=== PATIENT | female | born 1965 | race Caucasian/White ===

== ENCOUNTER 2017-07-20 14:20 | Emergency (ER) | payer OTHER ==
[~2017-07-20] VITALS: Ht 162.6 cm; Wt 52.2 kg
[~2017-07-20 14:20] MED LIST: CALC667C6 PO; CRESTOR20 MG PO; ERGO500027 PO; OMEG1CAP2 PO; RALO60TA PO
[2017-07-20 14:33] VITALS: BP 148/80
--- NOTE | 2017-07-20 15:11 | PHYS DOC ---
Past Medical History Past Medical History: High Cholesterol, Other Additional Past Medical Histor: SPINA BIFIDA Past Surgical History: Other Additional Past Surgical Histo: TUMOR REMOVED FROM SPINE Alcohol Use: Rarely Drug Use: None Adult General Chief Complaint Chief Complaint: LOWER EXT PAIN HPI HPI Patient is a 52 year old female presents to the emergency department stating that she has had bruising to bilateral feet for the last 2 weeks. Patient states she has also had a sore on bilateral feet for the last 2 weeks. Patient states she has no feeling in her feet which is normal for the last 20 + years. Patient is unsure if she had any injury. Review of Systems Review of Systems Constitutional: Denies fever or chills [] Eyes: Denies change in visual acuity, redness, or eye pain [] HENT: Denies nasal congestion or sore throat [] Respiratory: Denies cough or shortness of breath [] Cardiovascular: No additional information not addressed in HPI [] GI: Denies abdominal pain, nausea, vomiting, bloody stools or diarrhea [] : Denies dysuria or hematuria [] Musculoskeletal: Denies back pain. Bilateral feet with bruising noted at the toes Integument: Denies rash or skin lesions [] Neurologic: Denies headache, focal weakness or sensory changes [] Endocrine: Denies polyuria or polydipsia [] Allergies Allergies Allergies Coded Allergies Type Severity Reaction Last Updated Verified No Known Drug Allergies 08/26/15 No Physical Exam Physical Exam Constitutional: Well developed, well nourished, no acute distress, non-toxic appearance. [] HENT: Normocephalic, atraumatic, bilateral external ears normal, oropharynx moist, no oral exudates, nose normal. [] Eyes: PERRLA, EOMI, conjunctiva normal, no discharge. [] Neck: Normal range of motion, no tenderness, supple, no stridor. [] Cardiovascular:Heart rate regular rhythm, no murmur [] Lungs & Thorax: Bilateral breath sounds clear to auscultation [] Skin: Warm, dry, no erythema, no rash. Patient with open wounds noted at the 1st distal metatarsal area. Back: No tenderness Extremities: Bilateral feet with bruising noted no tenderness, no cyanosis, no clubbing, ROM intact, no edema. [] Neurologic: Alert and oriented X 3, normal motor function, normal sensory function, no focal deficits noted. [] Psychologic: Affect normal, judgement normal, mood normal. [] Current Patient Data Vital Signs Vital Signs Date Time Temp Pulse Resp B/P (MAP) Pulse Ox O2 Delivery O2 Flow Rate FiO2 07/20/17 14:33 98.7 89 15 98 Room Air 98.7 EKG EKG [] Radiology/Procedures Radiology/Procedures [facility] [address] [place] [address] IMAGING REPORT Signed PATIENT: KYAW RIVERA ACCOUNT: [id number] : 1965 LOCATION: ER AGE: 52 SEX: F EXAM STATUS: REG ER ORD. PHYSICIAN: ZACKERY HARDY APRN REASON: bilateral foot bruising PROCEDURE: FOOT BILAT 3V Bilateral feet, 6 views, 07/20/2017: History: Foot pain There is mild deformity of the left second metatarsal shaft compatible with an old healed fracture. There is deformity of the distal aspect of the proximal phalanx of the left great toe compatible with old trauma with secondary degenerative change at the AP joint. There are scattered degenerative changes including the left third MTP joint, the left second MTP joint and to a lesser degree scattered interphalangeal joints bilaterally. No fracture or dislocation is identified. There is mild subcutaneous edema bilaterally. IMPRESSION: 1. Mild scattered degenerative changes. 2. No acute bony abnormality is detected. DICTATED and SIGNED BY: NITHIN PINEDA MD DATE: 07/20/17 1526 CC: ZACKERY HARDY APRN; JOYCE SPICER MD; NON,STAFF ~ [] Course & Med Decision Making Course & Med Decision Making Pertinent Labs and Imaging studies reviewed. (See chart for details) X-rays were negative for any abnormalities per radiology. Patient has had the 2 open wounds on bilateral feet that appear to be impacted cystic to appear to be some type of ulcers. He do have drainage coming from the site. Patient will be placed on antibiotics Bactrim, she'll be provided with a discharge instructions to follow up at the wound care center. She'll be discharged home in stable condition signs and symptoms to return back to emergency department has been provided. If patient is unable to into the wound care center here at the [facility] recommended wound care center. Patient agrees with discharge instructions, treatment regimens and follow-up recommendations. Recommended follow-up visit with her primary care physician in the next 3-5 days. [] Dragon Disclaimer Dragon Disclaimer This electronic medical record was generated, in whole or in part, using a voice recognition dictation system. Departure Departure Impression: Primary Impression: Cellulitis of both feet Disposition: HOME, SELF-CARE Condition: STABLE Referrals: JOYCE SPICER MD (PCP) Patient Instructions: Cellulitis, [id number] Additional Instructions: Your being treated for an infection in both of your feet today. Antibiotics as prescribed. Tylenol or ibuprofen for pain and discomfort. Follow-up with wound care clinic either here at [facility] at [facility]. Follow-up to primary care physician in the next 3-5 days. Return back to emergency department for signs and symptoms of become worse. Scripts Sulfamethoxazole/Trimethoprim (BACTRIM DS TABLET) 1 Each Tablet 1 TAB PO BID, #20 TAB Prov: ZACKERY HARDY APRN 07/20/17 ZACKERY HARDY APRN Jul 20, 2017 15:11
--- NOTE | 2017-07-20 15:32 | RAD ---
Bilateral feet, 6 views, 07/20/2017: History: Foot pain There is mild deformity of the left second metatarsal shaft compatible with an old healed fracture. There is deformity of the distal aspect of the proximal phalanx of the left great toe compatible with old trauma with secondary degenerative change at the AP joint. There are scattered degenerative changes including the left third MTP joint, the left second MTP joint and to a lesser degree scattered interphalangeal joints bilaterally. No fracture or dislocation is identified. There is mild subcutaneous edema bilaterally. IMPRESSION: 1. Mild scattered degenerative changes. 2. No acute bony abnormality is detected.
[2017-07-20] MEDS ORDERED: SULF1TAB24 PO (15:49)
== END 2017-07-20 16:00 | disposition home or self-care (01) ==
LOC: ER 14:20
DX: L03.116 Cellulitis of left lower limb (principal); L03.115 Cellulitis of right lower limb; E78.00 Pure hypercholesterolemia, unspecified
CPT/HCPCS: 73630; 99284

== ENCOUNTER 2019-06-29 16:21 | Emergency (ER) | payer MEDICAID, OTHER ==
[~2019-06-29] VITALS: Ht 162.6 cm; Wt 61.2 kg
[~2019-06-29 16:21] MED LIST changes: +SULF1TAB24 PO
[2019-06-29 17:05] VITALS: BP 157/90
--- NOTE | 2019-06-29 17:17 | PHYS DOC ---
Past Medical History Past Medical History: High Cholesterol, Other Additional Past Medical Histor: SPINA BIFIDA (ZACKERY MACK DOOR CUTTER) Past Surgical History: Other Additional Past Surgical Histo: TUMOR REMOVED FROM SPINE (ZACKERY MACK APRN) Alcohol Use: Rarely Drug Use: None (ZACKERY MACK APRN) Adult General Chief Complaint Chief Complaint: [facility] HPI Patient is a 54 year old female who presents with right shoulder pain that times with movement she will have a sharp pain radiates down the arm into the fourth and fifth fingers. Patient states she had felt the same thing previously in the other shoulder. Patient does use this arm to hold her cane as she walks. Patient currently rates her pain a 5 out of 10 and states she has not taken any pain medicine. Patient is on meloxicam for arthritis. (ZACKERY MACK APRN) Review of Systems Review of Systems Constitutional: Denies fever or chills [] Eyes: Denies change in visual acuity, redness, or eye pain [] HENT: Denies nasal congestion or sore throat [] Respiratory: Denies cough or shortness of breath [] Cardiovascular: No additional information not addressed in HPI [] GI: Denies abdominal pain, nausea, vomiting, bloody stools or diarrhea [] : Denies dysuria or hematuria [] Musculoskeletal: Denies back pain. Right shoulder joint pain [] Integument: Denies rash or skin lesions [] Neurologic: Denies headache, focal weakness or sensory changes [] Endocrine: Denies polyuria or polydipsia [] All other systems were reviewed and found to be within normal limits, except as documented in this note. (ZACKERY MACK APRN) Allergies Allergies Allergies Coded Allergies Type Severity Reaction Last Updated Verified No Known Drug Allergies 08/26/15 No (JASMYN HUNTER DO) Physical Exam Physical Exam Constitutional: Well developed, well nourished, no acute distress, non-toxic appearance. [] Neck: Normal range of motion, no tenderness, supple, no stridor. [] Skin: Warm, dry, no erythema, no rash. [] Extremities: No tenderness, no cyanosis, no clubbing, ROM intact, no edema. [] Neurologic: Alert and oriented X 3, normal motor function, normal sensory function, no focal deficits noted. [] Psychologic: Affect normal, judgement normal, mood normal. Normal Physical Exam[] (ZACKERY MACK APRN) Current Patient Data Vital Signs Vital Signs Date Time Temp Pulse Resp B/P (MAP) Pulse Ox O2 Delivery O2 Flow Rate FiO2 06/29/19 17:05 98.2 82 18 157/90 (112) 98 Room Air 98.2 (HUNTER,JASMYN Benavides DO) EKG EKG [] (ZACKERY MACK APRN) Radiology/Procedures Radiology/Procedures [] (ZACKERY MACK APRN) Course & Med Decision Making Course & Med Decision Making Patient is a 54 year old female who presents with right shoulder pain that times with movement she will have a sharp pain radiates down the arm into the fourth and fifth fingers. Patient states she had felt the same thing previously in the other shoulder. Patient does use this arm to hold her cane as she walks. Patient currently rates her pain a 5 out of 10 and states she has not taken any pain medicine. Patient is on meloxicam for arthritis. Bilateral radial pulses are equal palpable and strong. There is no extremity edema. Skin is pink warm and dry. Cap refill less than 3. Patient denies any tenderness to the extremity with palpation. Range of motion of the shoulder is not intact due to pain but she can lift the shoulder in all directions to about shoulder height. Patient denies any numbness, tingling, skin color changes, temperature changes in the extremity. She states she does have a doctor's appointment on the 13th of next month. Patient denies any injury to the extremity. Patient denies numbness and tingling, chest pain, shortness of air, dizziness, syncope, visual changes, headache. She ambulates with a steady gait and does use a cane. Speaks in full clear sentences. Denies any weaknesses. Shoulder xray read by Dr Campa. No obvious acute findings are seen. Patient to follow up with her doctor as planned. I will give her pain medication to help her with pain. Patient is warned not to drive on this pain medication and that it can make her sleepy or dizzy. (ZACKERY MACK APRN) Dragon Disclaimer Dragon Disclaimer This electronic medical record was generated, in whole or in part, using a voice recognition dictation system. (ZACKERY MACK APRN) Departure Departure Impression: Primary Impression: Shoulder pain Disposition: HOME, SELF-CARE Condition: STABLE Referrals: JAXON MARTINS APRN (PCP) Patient Instructions: Arthritis, Nonspecific, Shoulder Pain Additional Instructions: Follow-up with primary care doctor as planned. Take pain medication as needed. Scripts Hydrocodone Bit/Acetaminophen (HYDROCODONE-APAP 5-325 ) 1 Tab Tablet 1 TAB PO PRN Q6HRS PRN for PAIN, #10 TAB 0 Refills Prov: ZACKERY MACK APRN 06/29/19 Attending Signature Attending Signature I have reviewed the PA/SOCIAL SECURITY BENEFITS INTERVIEWER's note and plan of care. I was available for consultation as needed during the patient's visit in the emergency department. I agree with the clinical impression, plan, and disposition. (JASMYN HUNTER DO) Problem Qualifiers Primary Impression: Shoulder pain Chronicity: acute Laterality: right Qualified Codes: M25.511 - Pain in right shoulder ZACKERY MACK APRN Jun 29, 2019 17:17 JASMYN HUNTER DO Jun 30, 2019 03:59
[2019-06-29] MEDS ORDERED: HYDR-2761 PO (18:19)
--- NOTE | 2019-06-29 20:11 | RAD ---
Exam: Right shoulder 3 views INDICATION: Pain TECHNIQUE: Frontal view of the right shoulder with internal and external rotation with transscapular Y view. Comparisons: None FINDINGS: Bone mineralization is normal. No acute or healed fractures. Soft tissues are unremarkable. Mild osteoarthritic change at the acromioclavicular joint. Otherwise joint spaces are well-maintained. IMPRESSION: No acute osseous abnormality. Electronically signed by: Consuelo Krishna MD (06/29/2019 8:08 PM) [facility]
== END 2019-06-29 18:42 | disposition home or self-care (01) ==
LOC: ER 16:21
DX: M25.511 Pain in right shoulder (principal); E78.00 Pure hypercholesterolemia, unspecified
CPT/HCPCS: 73030; 99284

== ENCOUNTER 2020-11-24 11:55 | Emergency (ER) | payer MEDICAID ==
[~2020-11-24] VITALS: Ht 162.6 cm; Wt 63.6 kg
[~2020-11-24 11:55] MED LIST changes: +HYDR-2761 PO
[2020-11-24] MEDS ORDERED: IV NORMAL SALINE 1000ML BAG 1,000 ML IV ONE ×2 (13:45→18:15)
--- NOTE | 2020-11-24 13:45 | PHYS DOC ---
Past Medical History Past Medical History: High Cholesterol, Other Additional Past Medical Histor: SPINA BIFIDA Past Surgical History: Other Additional Past Surgical Histo: TUMOR REMOVED FROM SPINE, urostomy Smoking Status: Current Every Day Smoker Alcohol Use: None Drug Use: None General Adult EDM: Chief Complaint: MULTIPLE COMPLAINTS HPI: HPI: Patient is a 55 year old female who presented to ER for 3-day history of fever and chills body ache, right ear pain, sore throat, and productive cough. Patient also has right flank pain, nausea vomiting and diarrhea. Patient denies being exposed to anybody who tested positive for COVID-19. Patient feels dehydrated. Patient has history of kidney stones in the past. Patient had neurogenic bladder syndrome, had diverging urostomy tube since she was young. Review of Systems: Review of Systems: Constitutional: Positive fever and chills. Eyes: Denies change in visual acuity. [] HENT: Positive for nasal congestion and sore throat, right ear pain. Respiratory: Positive for cough, no trouble breathing. Cardiovascular: Denies chest pain or edema. [] GI: Positive for right flank pain, nausea vomiting and diarrhea. [] : Denies dysuria. [] Musculoskeletal: Denies back pain or joint pain. [] Integument: Denies rash. [] Neurologic: Denies headache, focal weakness or sensory changes. [] Endocrine: Denies polyuria or polydipsia. [] Lymphatic: Denies swollen glands. [] Psychiatric: Denies depression or anxiety. [] Heart Score: Risk Factors: Risk Factors: DM, Current or recent (<one month) smoker, HTN, HLP, family history of CAD, obesity. Risk Scores: Score 0 - 3: 2.5% MACE over next 6 weeks - Discharge Home Score 4 - 6: 20.3% MACE over next 6 weeks - Admit for Clinical Observation Score 7 - 10: 72.7% MACE over next 6 weeks - Early Invasive Strategies Allergies: Allergies: Allergies Coded Allergies Type Severity Reaction Last Updated Verified No Known Drug Allergies 08/26/15 No Physical Exam: PE: Constitutional: Well developed, well nourished, no acute distress, non-toxic appearance. [] HENT: Normocephalic, atraumatic, bilateral external ears normal, oropharynx moist, no oral exudates, nose normal. [] Eyes: PERRLA, EOMI, conjunctiva normal, no discharge. [] Neck: Normal range of motion, no tenderness, supple, no stridor. [] Cardiovascular:Heart rate regular rhythm, no murmur [] Lungs & Thorax: Bilateral breath sounds clear to auscultation [] Abdomen: Bowel sounds normal, soft, right side UPPER QUANDRANT tenderness TO PALPATION, no masses, no pulsatile masses. UROSTOMY BAG IN PLACE WITH URINE. Skin: Warm, dry, no erythema, no rash. [] Back: No tenderness, Right CVA tenderness to palpation. Extremities: No tenderness, no cyanosis, no clubbing, ROM intact, no edema. [] Neurologic: Alert and oriented X 3, normal motor function, normal sensory function, no focal deficits noted. [] Psychologic: Affect normal, judgement normal, mood normal. [] Current Patient Data: Labs: Laboratory Tests Test 11/24/20 14:25 White Blood Count 13.0 x10^3/uL Red Blood Count 4.33 x10^6/uL Hemoglobin 12.9 g/dL Hematocrit 38.3 % Mean Corpuscular Volume 89 fL Mean Corpuscular Hemoglobin 30 pg Mean Corpuscular Hemoglobin Concent 34 g/dL Red Cell Distribution Width 13.5 % Platelet Count 190 x10^3/uL Neutrophils (%) (Auto) 83 % Lymphocytes (%) (Auto) 12 % Monocytes (%) (Auto) 5 % Eosinophils (%) (Auto) 1 % Basophils (%) (Auto) 0 % Neutrophils # (Auto) 10.7 x10^3/uL Lymphocytes # (Auto) 1.5 x10^3/uL Monocytes # (Auto) 0.7 x10^3/uL Eosinophils # (Auto) 0.1 x10^3/uL Basophils # (Auto) 0.0 x10^3/uL Urine Collection Type Unknown Urine Color Yellow Urine Clarity Clear Urine pH 7.0 Urine Specific [place] 1.015 Urine Protein 100 mg/dL Urine Glucose (UA) Negative mg/dL Urine Ketones (Stick) Negative mg/dL Urine Blood Moderate Urine Nitrite Negative Urine Bilirubin Negative Urine Urobilinogen Dipstick 0.2 mg/dL Urine Leukocyte Esterase Large Urine RBC 20-40 /HPF Urine WBC >40 /HPF Urine Bacteria Moderate /HPF Sodium Level 139 mmol/L Potassium Level 3.7 mmol/L Chloride Level 101 mmol/L Carbon Dioxide Level 24 mmol/L Anion Gap 14 Blood Urea Nitrogen 33 mg/dL Creatinine 2.3 mg/dL Estimated GFR (Cockcroft-Gault) 22.0 BUN/Creatinine Ratio 14 Glucose Level 79 mg/dL Calcium Level 9.1 mg/dL Magnesium Level 2.5 mg/dL Total Bilirubin 0.6 mg/dL Aspartate Amino Transf (AST/SGOT) 16 U/L Alanine Aminotransferase (ALT/SGPT) 27 U/L Alkaline Phosphatase 112 U/L Total Protein 7.6 g/dL Albumin 3.0 g/dL Albumin/Globulin Ratio 0.7 Lipase 87 U/L Current Medications Medications (Trade) Dose Ordered Sig/Jhony Route PRN Reason Start Time Stop Time Status Last Admin Dose Admin Sodium Chloride 1,000 ml @ 1,000 mls/hr 1X ONCE IV 11/24/20 13:45 11/24/20 14:44 DC 11/24/20 14:29 Ceftriaxone Sodium (Rocephin) 1 gm 1X ONCE IVP 11/24/20 15:30 11/24/20 15:31 DC Vital Signs: Vital Signs Date Time Temp Pulse Resp B/P (MAP) Pulse Ox O2 Delivery O2 Flow Rate FiO2 11/24/20 13:22 98.4 90 18 137/78 (97) 100 Room Air 98.4 EKG: EKG: [] Radiology/Procedures: Radiology/Procedures: [][facility] [address] [place] [address] IMAGING REPORT Signed PATIENT: KYAW RIVERA AACCOUNT: [id number] : 1965 LOCATION: ER AGE: 55 SEX: F EXAM STATUS: REG ER ORD. PHYSICIAN: RYLEE ALCARAZ DO REASON: COUGH, FEVER er5 PROCEDURE: CHEST AP ONLY INDICATION: Reason: COUGH, FEVER er5 / Spl. Instructions: / History: COMPARISON: April 2006. FINDINGS: Single view of chest obtained. Cardiac silhouette is unremarkable. Calcified granuloma left lung. No definite new region of consolidation or edema. IMPRESSION: * No focal airspace consolidation or edema. Electronically signed by: Sha Vásquez MD (11/24/2020 2:16 PM) [id number] DICTATED and SIGNED BY: SHA VÁSQUEZ MD DATE: 11/24/20 [id number] [facility] [address] [place] [address] IMAGING REPORT Signed PATIENT: KYAW RIVERA AACCOUNT: [id number] : 1965 LOCATION: ER AGE: 55 SEX: F EXAM STATUS: REG ER ORD. PHYSICIAN: RYLEE ALCARAZ DO REASON: right flank pain PROCEDURE: CT ABDOMEN PELVIS WO CONTRAST CT abdomen pelvis without contrast dated 11/24/2020. No comparison available. Clinical data indication: Right flank pain. TECHNIQUE: Contiguous axial imaging of the abdomen pelvis performed without the administration of IV or oral contrast. One or more of the following individualized dose reduction techniques were utilized for this examination: 1. Automated exposure control 2. Adjustment of the mA and/or kV according to patient size 3. Use of iterative reconstruction technique. FINDINGS: Limited images of lung bases are clear. Heart size is within normal limits. No pleural or pericardial effusion. Solid abdominal viscera not well evaluated in the absence of contrast material. No apparent attenuation abnormality of the liver or spleen. Pancreas, adrenal glands unremarkable. Gallbladder unremarkable. There is a 1.6 cm calcific stone at the right UPJ with moderate right-sided hydronephrosis. Inflammatory stranding in the right perinephric fat. No calcific stone within the substance of the left kidney. There is mild cortical scarring on the left. No definite left ureteral stone or left hydronephrosis. Low-density foci at the upper pole of right kidney and upper to midpole left kidney, difficult to accurately characterize but likely small cysts. There is evidence of prior urinary diversion surgery with ileal pouch in the right lower quadrant. Unopacified GI tract normal in caliber. No focal bowel wall thickening. Appendix normal in caliber. No ascites or lymphadenopathy. Abdominal aorta normal in caliber. Images of pelvis show small urinary bladder. Uterus and adnexa otherwise unremarkable. No free fluid or lymphadenopathy. Bone windows show no acute findings. There is grade 1 spondylolisthesis and bilateral spondylolysis at L5-S1. Multilevel spondylosis. IMPRESSION: 1. Large calcific stone at the right UPJ with moderate obstructive uropathy. 2. Evidence of prior urinary diversion surgery. No left-sided stone or hydronephrosis. 3. Indeterminate low-density foci at each kidney, likely small cysts. 4. Normal appendix. 5. Grade 1 spondylolisthesis and bilateral spondylolysis at L5-S1 Electronically signed by: Juan Jose Richard MD (11/24/2020 4:19 PM) [id number] DICTATED and SIGNED BY: JUAN JOSE RICHARD MD DATE: 11/24/20 [id number] Course & Med Decision Making: Course & Med Decision Making Pertinent Labs and Imaging studies reviewed. (See chart for details) Patient is a 55-year-old female who presented to ER due to right flank pain, patient was found to have pyelonephritis on the right side, right hydronephrosis due to obstructive 1.6 cm uteral pelvic stone. Patient will need to be admitted, to be evaluated by urologist, however there is no urology service at this hospital, patient will need to be transferred to another facility with urology coverage. Patient request to be transferred to [facility] because she had been there before. Dr. Tai Alfaro, hospitalist at [facility] agreed to accept the patient for transfer over there. Naheed Disclaimer: Naheed Disclaimer: This electronic medical record was generated, in whole or in part, using a voice recognition dictation system. Departure Departure Impression: Primary Impression: Kidney stone on right side Additional Impressions: Pyelonephritis Renal failure Disposition: 02 DC/TRF OTHER SHORT TERM HOS (Transfer to [facility], [place], [place], accepted by Dr. TAI ALFARO) Condition: STABLE Referrals: JAXON MARTINS APRN (PCP) RYLEE ALCARAZ DO Nov 24, 2020 13:45
--- NOTE | 2020-11-24 14:19 | RAD ---
INDICATION: Reason: COUGH, FEVER er5 / Spl. Instructions: / History: COMPARISON: April 2006. FINDINGS: Single view of chest obtained. Cardiac silhouette is unremarkable. Calcified granuloma left lung. No definite new region of consolid ation or edema. IMPRESSION: * No focal airspace consolidation or edema. Electronically signed by: Willie Hussein MD (11/24/2020 2:16 PM) [id number]
[2020-11-24 14:45] LABS: BASO % 0 % (0-3); EOS # 0.1 x10^3/uL (0.0-0.7); EOS % 1 % (0-3); HEMATOCRIT 38.3 % (36.0-47.0); HEMOGLOBIN 12.9 g/dL (12.0-15.5); LYMPH # 1.5 x10^3/uL (1.0-4.8); LYMPH % 12 % (24-48); MEAN CORPUSCULAR HEMOGLOBIN 30 pg (25-35); MEAN CORPUSCULAR HGB CONC 34 g/dL (31-37); MEAN CORPUSCULAR VOLUME 89 fL (79-100); MONO # 0.7 x10^3/uL (0.0-1.1); MONO % 5 % (0-9); NEUT # 10.7 x10^3/uL (1.8-7.7); NEUT % 83 % (31-73); PLATELET COUNT 190 x10^3/uL (140-400); RED BLOOD COUNT 4.33 x10^6/uL (3.50-5.40); RED CELL DISTRIBUTION WIDTH 13.5 % (11.5-14.5)
[2020-11-24 14:47] LABS: BILIRUBIN,URINE NEGATIVE (NEG); CLARITY,URINE CLEAR; COLOR,URINE YELLOW; NITRITE,URINE NEGATIVE (NEG); PROTEIN,URINE 100 mg/dL (NEG-TRACE); UROBILINOGEN,URINE 0.2 mg/dL (0.2 mg/dL)
[2020-11-24 14:53] LABS: CALCIUM 9.1 mg/dL (8.5-10.1); CREATININE 2.3 mg/dL (0.6-1.0); POTASSIUM 3.7 mmol/L (3.5-5.1)
[2020-11-24 14:57] LABS: BACTERIA,URINE MODERATE /HPF (0-FEW); RBC,URINE 20-40 /HPF (0-2); WBC,URINE >40 /HPF (0-4)
[2020-11-24 15:00] LABS: ALBUMIN/GLOBULIN RATIO 0.7 (1.0-1.7); MAGNESIUM 2.5 mg/dL (1.8-2.4); TOTAL BILIRUBIN 0.6 mg/dL (0.2-1.0); TOTAL PROTEIN 7.6 g/dL (6.4-8.2)
[2020-11-24] MEDS ORDERED: cefTRIAXone IV Push 1 GM VIAL. IVP ONE (15:30)
--- NOTE | 2020-11-24 16:21 | RAD ---
CT abdomen pelvis without contrast dated 11/24/2020. No comparison available. Clinical data indication: Right flank pain. TECHNIQUE: Contiguous axial imaging of the abdomen pelvis performed without the administration of IV or oral con trast. One or more of the following individualized dose reduction techniques were utilized for this examinat ion: 1. Automated exposure control 2. Adjustment of the mA and/or kV according to patient size 3. Use of iterative reconstruction technique. FINDINGS: Limited images of lung bases are clear. Heart size is within normal limits. No pleural or pericardial effusion. Solid abdominal viscera not well evaluated in the absence of contrast material. No apparent attenuati on abnormality of the liver or spleen. Pancreas, adrenal glands unremarkable. Gallbladder unremarkabl e. There is a 1.6 cm calcific stone at the right UPJ with moderate right-sided hydronephrosis. Inflammat ory stranding in the right perinephric fat. No calcific stone within the substance of the left kidney . There is mild cortical scarring on the left. No definite left ureteral stone or left hydronephrosis . Low-density foci at the upper pole of right kidney and upper to midpole left kidney, difficult to a ccurately characterize but likely small cysts. There is evidence of prior urinary diversion surgery w ith ileal pouch in the right lower quadrant. Unopacified GI tract normal in caliber. No focal bowel wall thickening. Appendix normal in caliber. N o ascites or lymphadenopathy. Abdominal aorta normal in caliber. Images of pelvis show small urinary bladder. Uterus and adnexa otherwise unremarkable. No free fluid or lymphadenopathy. Bone windows show no acute findings. There is grade 1 spondylolisthesis and bilateral spondylolysis a t L5-S1. Multilevel spondylosis. IMPRESSION: 1. Large calcific stone at the right UPJ with moderate obstructive uropathy. 2. Evidence of prior urinary diversion surgery. No left-sided stone or hydronephrosis. 3. Indeterminate low-density foci at each kidney, likely small cysts. 4. Normal appendix. 5. Grade 1 spondylolisthesis and bilateral spondylolysis at L5-S1 Electronically signed by: Juan Jose Richard MD (11/24/2020 4:19 PM) [id number]
[2020-11-24] MEDS ORDERED: MORPHINE SULFATE 4 MG/ML VIAL. IV ONE (16:45)
[2020-11-24] MEDS ORDERED: METOCLOPRAMIDE HCL 10 MG/2 ML VIAL. IVP ONE (18:30)
[2020-11-24 19:30] VITALS: BP 136/68
[2020-11-24] MEDS ORDERED: ACETAMINOPHEN 325 MG TABLET. PO ONE (20:00)
--- NOTE | 2020-11-26 09:20 | NUR ---
IP: Attempted to contact pt concerning COVID results. No answer and no voicemail.
== END 2020-11-24 20:17 | disposition short-term general hospital (02) ==
LOC: ER 11:55
DX: N12 Tubulo-interstitial nephritis, not specified as acute or chronic (principal); N20.0 Calculus of kidney; N19 Unspecified kidney failure; Z20.828 Contact with and (suspected) exposure to other viral communicable diseases; M43.07 Spondylolysis, lumbosacral region; J02.9 Acute pharyngitis, unspecified; R05 Cough; R50.9 Fever, unspecified; M79.10 Myalgia, unspecified site; E78.00 Pure hypercholesterolemia, unspecified; F17.200 Nicotine dependence, unspecified, uncomplicated
CPT/HCPCS: 36415; 71045; 74176; 80053; 81001; 83605; 83690; 83735; 85025; 87086; 87426; 96361; 96374; 96375; 99285; C9803; J0696; J2270; J2765; J7030; U0003; 87077; 87186; 96376